=== PATIENT | male | born 1975 | race Caucasian/White ===

== ENCOUNTER 2016-08-06 09:53 | Emergency (ER) | payer BC ==
[2016-08-06 10:02] VITALS: BP 128/86
[2016-08-06] MEDS ORDERED: DIAZEPAM 2 MG TABLET PO ONE (10:37)
--- NOTE | 2016-08-06 10:46 | ER Document Report ---
ED Medical Screen (RME) - General Chief Complaint: Arm Pain Stated Complaint: ARM PAIN Time Seen by Provider: 08/06/16 10:27 Mode of Arrival: Ambulatory Information source: Patient TRAVEL OUTSIDE OF THE [place] IN LAST 30 DAYS: No - HPI Patient complains to provider of: neck pain with right arm pain, finger tingling Onset: Other - 2-3 weeks Onset/Duration: Persistent, Worse Quality of pain: Achy, Pressure Severity: Moderate Pain Level: 4 Exacerbated by: Movement Relieved by: Denies Similar symptoms previously: Yes Recently seen / treated by doctor: Yes Notes: 08/06/16 10:44 Patient is a 40-year-old male who presents to the emergency room complaining of neck pain rating down into his trapezius and his right arm with tingling sensation to the first 3 fingers, symptoms have been going on for the past few weeks, he has been seen by his primary care provider as well as a chiropractor, has been on multiple medications including tramadol, Solu-Medrol, Toradol, Flexeril, prednisone, with no relief of his symptoms, he is also had trigger point injections with his primary care provider with no relief, he was seen by a chiropractor 2 days ago who was uncomfortable performing manipulation due to the increased tightness and swelling in his right trapezius muscle, he attempted to follow-up with his primary care provider once again today who referred him to the emergency room to have imaging performed to rule out a herniated disc in his neck - Related Data Allergies/Adverse Reactions: No Known Allergies Allergy (Unverified 08/06/16 09:58) Past Medical History - Social History Chew tobacco use (# tins/day): No Frequency of alcohol use: Rare Drug Abuse: None Renal/ Medical History: Denies: Hx Peritoneal Dialysis Surgical Hx: Negative Physical Exam - Vital signs Vitals: Temp Pulse Resp BP Pulse Ox 98.3 F 82 20 128/86 H 98 08/06/16 09:58 08/06/16 09:58 08/06/16 09:58 08/06/16 09:58 08/06/16 09:58 Course - Vital Signs Vital signs: Temp Pulse Resp BP Pulse Ox 98.3 F 82 20 128/86 H 98 08/06/16 09:58 08/06/16 09:58 08/06/16 09:58 08/06/16 09:58 08/06/16 09:58
--- NOTE | 2016-08-06 11:12 | ER Document Report ---
ED Neck/Back Problem - General Mode of Arrival: Ambulatory Information source: Patient TRAVEL OUTSIDE OF THE [place] IN LAST 30 DAYS: No - HPI Patient complains to provider of: Pain - shoulder Associated symptoms: Other - See above <ZBIGNIEW MONK - Last Filed: 08/06/16 16:32> <KARLEE RAINEY - Last Filed: 08/06/16 19:00> - General Chief Complaint: Shoulder Pain Stated Complaint: shoulder pain Time Seen by Provider: 08/06/16 10:27 Notes: Patient is a 40 year old male who presents to the emergency department complaining of shoulder pain onset 2 weeks ago. Patient reports the pain started in his neck and he has seen his PCP for the pain but it has not gone away with Solu-Medrol shots and that it has worsened recently and moved into his right shoulder. Patient reports the pain shoots down his right arm and his right fingers have gone numb. Patient denies pain in his left arm. 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 ( ZBIGNIEW MONK) - Related Data Allergies/Adverse Reactions: No Known Allergies Allergy (Unverified 08/06/16 09:58) Past Medical History - General Information source: Patient - Social History Smoking Status: Current Every Day Smoker Chew tobacco use (# tins/day): No Frequency of alcohol use: Rare Drug Abuse: None Occupation: nurse Family History: Reviewed & Not Pertinent Patient has suicidal ideation: No Patient has homicidal ideation: No Surgical Hx: Negative <ZBIGNIEW MONK - Last Filed: 08/06/16 16:32> Review of Systems - Review of Systems Constitutional: No symptoms reported EENT: No symptoms reported Cardiovascular: No symptoms reported Respiratory: No symptoms reported Gastrointestinal: No symptoms reported Genitourinary: No symptoms reported Male Genitourinary: No symptoms reported Musculoskeletal: See HPI, Neck pain, Other - arm pain Skin: No symptoms reported Hematologic/Lymphatic: No symptoms reported Neurological/Psychological: See HPI, Numbness -: Yes All other systems reviewed and negative <ZBIGNIEW MONK - Last Filed: 08/06/16 16:32> Physical Exam - Vital signs Interpretation: Normal - General General appearance: Appears well, Alert - HEENT Head: Normocephalic, Atraumatic - Respiratory Respiratory status: No respiratory distress - Back Back: Tender - Tenderness to palpation of medial scapula over supraspinatus into right axilla - Extremities General upper extremity: Normal inspection, Nontender, Normal ROM, Normal strength General lower extremity: Normal inspection, Normal ROM, Normal strength Arm: Normal - Neurological Neuro grossly intact: Yes Cognition: Normal Orientation: AAOx4 [place] Coma Scale Eye Opening: Spontaneous [place] Coma Scale Verbal: Oriented [place] Coma Scale Motor: Obeys Commands [place] Coma Scale Total: 15 Speech: Normal Motor strength normal: LUE, RUE, LLE, RLE Sensory: Other - sensation altered in thumb, index, and middle digit of right hand - Psychological Associated symptoms: Normal affect, Normal mood - Skin Skin Temperature: Warm Skin Moisture: Dry Skin Color: Normal <ZBIGNIEW MONK - Last Filed: 08/06/16 16:32> - HEENT Neck: Other - No midline TTP <KARLEE RAINEY - Last Filed: 08/06/16 19:00> - Vital signs Vitals: Temp Pulse Resp BP Pulse Ox 98.3 F 82 20 128/86 H 98 08/06/16 09:58 08/06/16 09:58 08/06/16 09:58 08/06/16 09:58 08/06/16 09:58 Course <ZBIGNIEW MONK - Last Filed: 08/06/16 16:32> - Diagnostic Test Radiology reviewed: Reports reviewed <KARLEE RAINEY - Last Filed: 08/06/16 19:00> - Re-evaluation Re-evalutation: 08/06/16 14:53 Patient is a 40-year-old male who comes in complaining of right shoulder pain, numbness and tingling into his first 3 digits. Patient had an MRI ordered at triage. He does not have any midline tenderness to palpation. MRI showing a large disc bulge at C6-C7. Started to explain to the patient that this could be the cause of his symptoms or he might have a shoulder girdle injury. Called out of the room to see an emergent patient. Return to the room, patient informs me that he wants to leave AGAINST MEDICAL ADVICE. Patient states that he was "almost misdiagnosed ." He does not want to be counseled about the pain that he is having. He just wants to leave. Patient is extremely hostile and verbally abusive in the room. Patient continues to yell and demand to be signed out AGAINST MEDICAL ADVICE. Eventually, explained to the patient that I was not going to have him yell at me any further and that he was free to leave. Patient continues to yell and was escorted out by security. Patient stayed in the waiting room until his discharge paperwork was completed and he signed out AGAINST MEDICAL ADVICE. Of note, the patient is neurologically intact with full range of motion and strength of his upper extremities. Regardless, he does not want to be evaluated any further or have any further discussion with me regarding his symptoms or follow-up. (KARLEE RAINEY) - Vital Signs Vital signs: Temp Pulse Resp BP Pulse Ox 98.3 F 82 20 128/86 H 98 08/06/16 09:58 08/06/16 09:58 08/06/16 09:58 08/06/16 09:58 08/06/16 09:58 Discharge <ZBIGNIEW MONK - Last Filed: 08/06/16 16:32> <KARLEE RAINEY - Last Filed: 08/06/16 19:00> - Discharge Clinical Impression: Herniated disc, cervical, Paresthesia and pain of right extremity Condition: Stable Disposition: AGAINST MEDICAL ADVICE Instructions: Herniated Disc ([facility]) Additional Instructions: You are signing out AGAINST MEDICAL ADVICE. You are free to return to the emergency department at any time if you have any further concerns or symptoms. Please follow-up with your primary care doctor and then a spine doctor of your choice. Please discuss physical therapy and options for intervention. [facility] - [place] [address] [place] [address] [place] [address] Referrals: JHOANA ONEAL PA-C [Primary Care Provider] - Follow up as needed ZOEY MIRELES MD [ACTIVE STAFF] - Follow up in 3-5 days Scribe Attestation: 08/06/16 19:00 I personally performed the services described in the documentation, reviewed and edited the documentation which was dictated to the scribe in my presence, and it accurately records my words and actions. (KARLEE RAINEY) Scribe Documentation - Scribe Written by Scribe:: greyson Sheridan, 08/06/16, 1154 acting as scribe for :: Benito <ZBIGNIEW MONK - Last Filed: 08/06/16 16:32>
--- NOTE | 2016-08-06 13:43 | RADIOLOGY REPORT (SQ) ---
EXAM DESCRIPTION: MRI CERVICAL SPINE WITHOUT COMPLETED DATE/TIME: 08/06/2016 12:50 pm REASON FOR STUDY: neck pain, right arm pain COMPARISON: None. TECHNIQUE: Sagittal and Axial imaging includes T1, T2, STIR and gradient echo sequences. LIMITATIONS: None. FINDINGS: ALIGNMENT: Normal. VERTEBRAE: Intact. BONE MARROW: Normal. No marrow replacement or reactive changes. DISCS: Decreased T2 weighted intervertebral disc signal throughout the cervical spine. Disc space lo ss of height at C5-6. Right paracentral and foraminal disc herniation at C6-7 HARDWARE: None in the spine. CORD AND BASE OF BRAIN: Normal in size and signal intensity. SOFT TISSUES: No soft tissue masses. C1-C2: No significant spinal stenosis. C2-C3: No significant spinal stenosis or exit foraminal stenosis. C3-C4: No significant spinal stenosis or exit foraminal stenosis. C4-C5: No significant spinal stenosis or exit foraminal stenosis. C5-C6: No significant spinal stenosis or exit foraminal stenosis. C6-C7: A moderate to large right paracentral and foraminal disc herniation at C6-7, causing high-grad e right foraminal stenosis. This is best shown on axial series 7, image [id number], and axial series 6 image 21 and 22. Elsewhere at C6-7, broad diffuse posterior disc bulging abuts the ventral cord without definite cord flattening or abnormal intrinsic cord signal. Mild central canal stenosis. No left foraminal narrow ing. C7-T1: No significant spinal stenosis or exit foraminal stenosis. UPPER THORACIC: Incompletely imaged. No significant spinal stenosis or exit foraminal stenosis. OTHER: No other significant finding. IMPRESSION: Moderate to large right paracentral and proximal foraminal disc herniation at C6-7 TECHNICAL DOCUMENTATION: JOB ID: [id number]- All Rights Reserved
[2016-08-06] MEDS ORDERED: PREDNISONE 20 MG TABLET PO ONE (14:35)
== END 2016-08-06 15:19 | disposition left against medical advice (07) ==
LOC: ER 09:53
DX: M50.20 Other cervical disc displacement, unspecified cervical region (principal); R20.9 Unspecified disturbances of skin sensation; F17.200 Nicotine dependence, unspecified, uncomplicated
CPT/HCPCS: 99283; 72141; J3490